=== PATIENT | female | born 2000 | race Caucasian/White ===

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

== ENCOUNTER 2021-06-21 19:31 | Emergency (ER) | payer SELFPAY | END 2021-06-21 20:31 | disposition left against medical advice (07) | LOC: MW.ED 19:31 | DX: Z53.21 Procedure and treatment not carried out due to patient leaving prior to being seen by health care provider (principal) ==

== ENCOUNTER 2024-02-06 22:22 | Emergency (ER) | payer SELFPAY ==
[2024-02-06 22:52] VITALS: BP 144/88; PULSE 116
== END 2024-02-06 23:59 | disposition home or self-care (01) ==
LOC: MW.ED 22:22
DX: Z01.419 Encounter for gynecological examination (general) (routine) without abnormal findings (principal)
CPT/HCPCS: 99283

== ENCOUNTER 2024-06-09 23:58 | Emergency (ER) | payer OTHER ==
[2024-06-10 02:27] VITALS: BP 139/73; PULSE 104
== END 2024-06-10 02:27 ==
LOC: MW.ED 23:58
DX: Z02.89 Encounter for other administrative examinations (principal); V89.2XXA Person injured in unspecified motor-vehicle accident, traffic, initial encounter
CPT/HCPCS: 99283